=== PATIENT | female | born 1975 | race Caucasian/White ===

== ENCOUNTER 2024-08-16 10:46 | Emergency (ER) | payer MEDICAID ==
[~2024-08-16] VITALS: Ht 165.1 cm; Wt 68.0 kg
[2024-08-16 11:03] VITALS: O2SAT 100
[2024-08-16 11:43] LABS: BASOPHILS % 0.3 % (0.0-2.0); DIFFERENTIAL COMMENT 0; HEMATOCRIT. 40.2 % (36.0-48.0); HEMOGLOBIN. 12.7 g/dL (12.0-16.0); LYMPHOCYTES % 22.4 % (20.0-50.0); MEAN CORPUSCULAR HEMOGLOBIN 25.2 pg (28.0-32.0); MEAN CORPUSCULAR HGB CONC 31.5 g/dL (31.0-37.0); MEAN CORPUSCULAR VOLUME 79.9 fL (81.0-99.0); MEAN PLATELET VOLUME 7.6 fl (7.4-10.4); MONOCYTES % 5.1 % (2.0-8.0); NEUTROPHILS % 71.2 % (40.0-76.0); PLATELET 373 x1000/uL (130-400); RED BLOOD CELL COUNT 5.04 mill/uL (4.2-5.4); RED CELL DISTRIBUTION WIDTH 15.4 % (11.6-14.6); WHITE BLOOD COUNT 9.8 x1000/uL (4.5-11.0)
[2024-08-16 12:06] LABS: CHLORIDE 108 mEq/L (98-107); POTASSIUM 3.9 mEq/L (3.5-5.1); SODIUM 140 mEq/L (136-145)
[2024-08-16 12:07] LABS: CARBON DIOXIDE 25 mEq/L (21-32)
[2024-08-16 12:08] LABS: CALCIUM 9.3 mg/dL (8.7-10.4)
[2024-08-16 12:12] LABS: CREATININE 0.6 mg/dL (0.6-1.0); GLUCOSE 91 mg/dL (70-105)
[2024-08-16 12:13] LABS: UREA NITROGEN BLOOD 10 mg/dL (9-23)
[2024-08-16 12:22] LABS: HCG SCREEN NEGATIVE
[2024-08-16 13:50] LABS: TROPONIN I HIGH SENSITIVITY < 4 ng/L (3.0-34)
[2024-08-16 14:36] VITALS: BP 119/68; PULSE 70; RESP 18; TEMP 36.8; O2SAT 100
== END 2024-08-16 14:42 | disposition home or self-care (01) ==
LOC: ER 10:46
DX: R07.89 Other chest pain (principal); E78.00 Pure hypercholesterolemia, unspecified
CPT/HCPCS: 36415; 71045; 80048; 84484; 84703; 85025; 93005; 99285